=== PATIENT | female | born 1975 ===

== ENCOUNTER 2020-04-26 11:13 | Emergency (ER) | payer MEDICAID ==
[2020-04-26 11:32] VITALS: BP 112/78
--- NOTE | 2020-04-26 12:06 | Emergency Department Report ---
Chief Complaint: Pain General Stated Complaint: HEADACHE/NECK/BACK PAIN - HPI History of Present Illness: 45-year-old -[place] female presents to the emergency room complaining of neck back and chills for 2 days. Body aches and headache worsening. Reports that she was in [facility] returned on a flight last night. Patient was noted to have a temperature of 101.2. Patient has not taken anything for his symptoms. Patient has no comorbidities. - Exam Vital Signs: Vital Signs 04/26/20 11:23 Temperature 101.2 F H Pulse Rate 105 H Respiratory 20 Rate Blood Pressure 112/78 O2 Sat by Pulse 97 Oximetry Physical Exam: Gen: alert oriented NAD Cardic: regular rate and rhythm no murmurs appreciated Resp: Clear to auscultation bilateral no wheezing no rales or rhonchi. Abdomen: Soft nontender nondistended normal bowel sounds. Ambulatory without difficulties MSE screening note: Focused history and physical exam performed. Due to findings the following was ordered: 45-year-old -[place] female presents to the emergency room complaining of neck back and chills for 2 days. Body aches and headache worsening. Reports that she was in [facility] returned on a flight last night. Patient was noted to have a temperature of 101.2. Patient has not taken anything for his symptoms. No comorbidities ED Disposition for MSE Is pt being admited?: No Does the pt Need Aspirin: No Condition: Stable Additional Instructions: Your symptoms appear most consistent with a nonspecific viral syndrome. However, given this current pandemic, COVID-19 is in the differential of possibilities. Despite your previous negative COVID-19 test, I do recommend repeat outpatient Covid 19 testing. In the meantime, isolate/quarantine yourself and stay away from anyone who is elderly, immunocompromised or chronically ill. You can use ibuprofen every 6-8 hours and Tylenol every 4-8 hours, using the dosing on the back of the bottle, as needed for any fever or body aches. Return to the emergency department with any worsening of your symptoms, development of chest pain or shortness of breath, or with any acute distress. Recommend increase her fluid intake try vitamin C zinc and vitamin D will help loosen up your immune system. Follow-up with a primary care provider. Covid handout given for testing. Referrals: [facility] [Provider Group] - 3-5 Days
== END 2020-04-26 12:15 | disposition home or self-care (01) ==
LOC: ED 11:13
DX: M54.2 Cervicalgia (principal); R51.9 Headache, unspecified; R68.83 Chills (without fever)
CPT/HCPCS: 99282